=== PATIENT | male | born 1950 | race Caucasian/White ===

== ENCOUNTER 2024-01-17 20:09 | Emergency (ER) | payer MEDICARE, SELFPAY ==
[2024-01-17 20:11] VITALS: BP 161/101
[2024-01-17] MEDS: BENADRYL 50 MG IV (20:15)
[2024-01-17] MEDS: PEPCID 20 MG IV (20:20)
[2024-01-17] MEDS: ADRENALIN 0.3 MG IM (20:20)
[2024-01-17] MEDS: DECADRON 10 MG IV (20:20)
--- NOTE | 2024-01-17 20:27 | ED.GENMED ---
History of Present Illness
<Genaro Chamberlain, DO - Last Filed: 01/17/24 23:09>
General
Chief Complaint: Allergic Reaction
Source: patient and spouse
Exam Limitations: none
Time Seen by Provider: 01/17/24 20:14
Nursing documentation reviewed up to this point in time: agreed with
History of Present Illness
History of Present Illness:
73 yo male presents to the emergency department due to throat swelling and difficulty breathing. He had just eaten some Kh[place] food, but his leftovers that he had eaten the night before.
Past History
<Genaro Chamberlain, DO - Last Filed: 01/17/24 23:09>
Past History
ED Past Medical History: HTN, Hypercholesterolemia, NIDDM and Other (kidney stones)
ED Past Surgical History: None, Orthopedic and Urological
Social History
Tobacco: Former smoker
Personal:
Living: with family
Employment: Employed
Family History
Family History: CAD; Negative Early CAD
Review of Systems
<Genaro Chamberlain, DO - Last Filed: 01/17/24 23:09>
Review of Systems
Allergies reviewed?: Yes
All Other Systems: Not applicable
Constitutional: Reports no symptoms
EENT: Reports sore throat and mouth swelling
Respiratory: Reports trouble breathing
Phy Exam
<Genaro Chamberlain, DO - Last Filed: 01/17/24 23:09>
Physical Exam
Physical Exam:
Physical Exam
General: Mild respiratory distress
Neck: supple. no meningeal signs. normal posterior pharynx
Heart: s1/s2 regular rate and rhythm, no murmur. equal radial
pulses.
HEENT: Pupils equal round reactive to light, EOMI
Lungs: Mild respiratory distress. clear bilaterally
Abdomen: normal bowel sounds. not tender. no CVAT
Neuro: alert and oriented. no focal neurological deficits cranial nerves II through XII intact
Skin: no rash
Psychiatric: well kept. interactive and cooperative
Extremities: no edema. no calf tenderness. negative homans. good distal pulses
Course
<Genaro Chamberlain, DO - Last Filed: 01/17/24 23:09>
Orders/Labs/Results
Orders:
Orders
01/17/24 20:26
IV Insert/Care/Rem.- Treatment PRN
Dexamethasone Sod Phosphate [Decadron] 10 mg IV NOW STA
Diphenhydramine [Benadryl] 50 mg IV NOW STA
EPINEPHrine PF [Adrenalin] 0.3 mg IM NOW STA
Famotidine [Pepcid] 20 mg IV NOW STA
01/17/24 21:56
CT Neck With Iv Contrast Urgent
Comment:
Reason For Exam: throat swelling
01/17/24 21:57
IV Insert/Care/Rem.- Treatment PRN
01/17/24 22:46
Complete Blood Count/With Diff Urgent
Comprehensive Metabolic Panel Urgent
Abnormal Lab Results
01/17/24
22:46
WBC 13.9 H 10^3/uL
(4.8-10.8)
RBC 4.23 L 10^6/uL
(4.70-6.10)
MCV 95.3 H fL
(80.0-94.0)
MCH 33.1 H pg
(27.0-31.0)
MPV 10.7 H fL
(7.4-10.4)
Abs Immat Gran (auto) 0.1 H 10^3/uL
(0-0.05)
Absolute Neuts (auto) 12.6 H 10^3/uL
(1.4-6.5)
Absolute Lymphs (auto) 0.6 L 10^3/uL
(1.2-3.4)
Neutrophils % 90.7 H %
(42.2-75.2)
Lymphocytes % 4.4 L %
(20.5-51.1)
Glucose 215 H mg/dl
(70-99)
Total Protein 6.2 L g/dl
(6.3-8.2)
01/17/24 22:46
01/17/24 22:46
Vital Signs
Initial and Last Documented VS:
Initial Vital Signs
Temp Pulse Resp BP Pulse Ox
98.3 F 96 32 161/101 96
01/17/24 20:11 01/17/24 20:11 01/17/24 20:11 01/17/24 20:11 01/17/24 20:11
Last Documented Vital Signs
Temp Pulse Resp BP Pulse Ox
98.3 F 73 15 133/86 90
01/17/24 20:11 01/18/24 02:15 01/18/24 02:15 01/18/24 02:00 01/18/24 02:15
<Maria M Lara DO - Last Filed: 01/18/24 03:15>
Orders/Labs/Results
Orders:
Orders
01/17/24 20:26
IV Insert/Care/Rem.- Treatment PRN
Dexamethasone Sod Phosphate [Decadron] 10 mg IV NOW STA
Diphenhydramine [Benadryl] 50 mg IV NOW STA
EPINEPHrine PF [Adrenalin] 0.3 mg IM NOW STA
Famotidine [Pepcid] 20 mg IV NOW STA
01/17/24 21:56
CT Neck With Iv Contrast Urgent
Comment:
Reason For Exam: throat swelling
01/17/24 21:57
IV Insert/Care/Rem.- Treatment PRN
01/17/24 22:46
Complete Blood Count/With Diff Urgent
Comprehensive Metabolic Panel Urgent
Abnormal Lab Results
01/17/24
22:46
WBC 13.9 H 10^3/uL
(4.8-10.8)
RBC 4.23 L 10^6/uL
(4.70-6.10)
MCV 95.3 H fL
(80.0-94.0)
MCH 33.1 H pg
(27.0-31.0)
MPV 10.7 H fL
(7.4-10.4)
Abs Immat Gran (auto) 0.1 H 10^3/uL
(0-0.05)
Absolute Neuts (auto) 12.6 H 10^3/uL
(1.4-6.5)
Absolute Lymphs (auto) 0.6 L 10^3/uL
(1.2-3.4)
Neutrophils % 90.7 H %
(42.2-75.2)
Lymphocytes % 4.4 L %
(20.5-51.1)
Glucose 215 H mg/dl
(70-99)
Total Protein 6.2 L g/dl
(6.3-8.2)
01/17/24 22:46
01/17/24 22:46
Vital Signs
Initial and Last Documented VS:
Initial Vital Signs
Temp Pulse Resp BP Pulse Ox
98.3 F 96 32 161/101 96
01/17/24 20:11 01/17/24 20:11 01/17/24 20:11 01/17/24 20:11 01/17/24 20:11
Last Documented Vital Signs
Temp Pulse Resp BP Pulse Ox
98.3 F 73 15 133/86 90
01/17/24 20:11 01/18/24 02:15 01/18/24 02:15 01/18/24 02:00 01/18/24 02:15
<Genaro Chamberlain, DO - Last Filed: 01/17/24 23:09>
MDM/Problems Addressed
Differential Diagnosis Includes:
Epiglottitis, angioedema, anaphylaxis
MDM/Problems Addressed:
73-year-old male with difficulty breathing, throat swelling. Mild improvement after IV Decadron, Benadryl and epinephrine IM. Evaluate with CT scan due to persistent symptoms.
<Marai M Lraa, DO - Last Filed: 01/18/24 03:15>
*Radiology
Radiology exam reviewed: radiology read reviewed
*Pulse Oximetry
Patient hypoxic: no
*Critical Care Note
Total Time (30-74mins, 75-104mins- exclusive of procedures): Not Applicable
<Maria M Lara DO - Last Filed: 01/18/24 03:15>
Update Note
Update Note:
01/18/2024 00:[address] shows moderate edema of the uvula, oropharynx and hypopharynx consistent with angioedema. Airway is patent.
Patient reassessed, marked improvement in sense of throat swelling, speech is clear, no respiratory distress, no stridor.
Posterior pharynx with mild uvular edema.
Will continue to observe and if he continues to improve we will plan for discharge to home.
01/18/2024 0300 AM
Patient has had continued improvement, speech is clear, uvula near normal in size.
Will discharge to home with recommendations to initiate short course of daily antihistamine, will add a short course of prednisone.
Will discontinue enalapril and recommend he avoid all DENISSE inhibitors in the future.
Will increase amlodipine from 5 to 10 mg daily.
Patient has follow-up appointment with his PCP next week.
Return precautions discussed.
ED Attending Note
<Genaro Chamberlain DO - Last Filed: 01/17/24 23:09>
-
Portions of this chart may have been created with voice recognition software.� Occasional wrong word or��sound alike� substitutions may have occurred due to the inherent limitations of voice recognition software.
Discharge Plan
Departure
Patient Disposition: Home (Routine Discharge)
Date of Disposition: 01/18/24
Time of Disposition: 03:12
Patient with high blood pressure during this ER visit?: No
Condition: Good
Discharge Problem:
acute angioedema, DENISSE inhibitor-aggravated angioedema
Instructions: Angioedema caused by DENISSE inhibitor medicines
Prescriptions:
New
prednisone 20 mg tablet
40 mg PO DAILY Qty: 10 0RF
No Action
enalapril maleate 20 MG tablet
20 mg PO BID
aspirin [Cristofer Low Dose Aspirin] 81 MG tablet,delayed release (DR/EC)
81 mg PO Daily
metformin 500 mg Tablet
500 mg PO BID
metoprolol succinate 25 mg Tablet Extended Release 24 Hr
25 mg PO DAILY
iykoaojhxtla-rhxiaibl-zhjkdn Tablet
1 tab PO DAILY
rosuvastatin 20 mg Tablet
20 mg PO DAILY
cholecalciferol (vitamin D3) [Vitamin D3] 50 mcg (2,000 unit) Capsule
50 mcg PO DAILY
Trulicity 0.75 mg/0.5 mL Pen Injector
0.75 mg SC QWEEK
amlodipine 5 mg tablet
5 mg PO DAILY Qty: 90 3RF
Referrals:
Gaurav Oscar MD [Family Provider] - Keep scheduled appt
Activity Restrictions/Additional Instructions:
Discontinue enalapril and going forward you should avoid all DENISSE inhibitor blood pressure medications.
Double up your amlodipine from 5 mg to 10 mg nightly.
Follow-up with Dr. Oscar next week for recheck as already scheduled.
Interventions
Interventions:
*General Assessment Last Done: 01/17/24 20:12
*Neglect/Abuse Screening Last Done: 01/17/24 20:50
ED- Fall Risk Assessment Last Done: 01/17/24 20:50
*ED COVID-19 Vaccine History Last Done: 01/17/24 20:50
ED- Cardiac Assessment Last Done: 01/17/24 20:50
ED- Pulmonary Assessment Last Done: 01/17/24 20:50
ED-Skin Assessment Last Done: 01/17/24 20:50
Discharge Date and Time
Print Language: SERBIAN
--- NOTE | 2024-01-17 20:27 | EDRN ---
Upon arrival to room 41, NARDA Mendoza placed 18 G LAC. Pt on . Dr Chamberlain to bedside. This RN amdministered 0.3 mg epi IM, 10 mg decadron IV, and 50 mg benadryl IV STAT and not scanned.
[2024-01-17 20:37] VITALS: BP 116/74
[2024-01-17 20:50] VITALS: BMI 33.7
[2024-01-17 21:00] VITALS: BP 106/92
[2024-01-17 22:44] VITALS: BP 135/79
[2024-01-17 22:59] LABS: % Basophils 0.2 % (0-2); % Eosinophils 0.5 % (0-6); % Immature Granulocytes 0.4 % (0-0.5); % Lymphocytes 4.4 % (20.5-51.1); % Monocytes 3.8 % (1.7-9.3); % Neutrophils 90.7 % (42.2-75.2); Absolute Eosinophils 0.1 10^3/uL (0-0.7); Absolute Immature Granulocytes 0.1 10^3/uL (0-0.05); Absolute Lymphocytes 0.6 10^3/uL (1.2-3.4); Absolute Monocytes 0.5 10^3/uL (0.1-0.6); Absolute Neutrophils 12.6 10^3/uL (1.4-6.5); Hematocrit 40.3 % (39.0-52.0); Mean Corp Hgb Conc. 34.7 g/dL (33.0-37.0); Mean Corpuscular Hgb 33.1 pg (27.0-31.0); Mean Corpuscular Volume 95.3 fL (80.0-94.0); Mean Platelet Volume 10.7 fL (7.4-10.4); Nucleated Red Blood Cells % 0 % (-); Platelet Count 159 10^3/uL (130-400); Red Blood Cell Count 4.23 10^6/uL (4.70-6.10); Red Cell Dist. Width 12.6 % (11.5-14.5); White Blood Cell Count 13.9 10^3/uL (4.8-10.8)
[2024-01-17 23:00] VITALS: BP 126/82
[2024-01-17 23:30] LABS: ALT (SGPT) 20 U/L (0-50); AST (SGOT) 26 U/L (17-59); Albumin 3.9 g/dl (3.5-5.0); Alkaline Phosphatase 71 U/L (38-126); Blood Urea Nitrogen 16 mg/dl (9-20); Calcium 8.7 mg/dl (8.4-10.2); Carbon Dioxide 23 mmol/L (22-30); Chloride 105 mmol/L (98-107); Estimated Creatinine Clearance 88 ml/min; Glucose 215 mg/dl (70-99); Potassium 4.6 mmol/L (3.5-5.1); Sodium 142 mmol/L (135-145); Total Bilirubin 0.6 mg/dl (0.2-1.3); Total Protein 6.2 g/dl (6.3-8.2); eGFR > 60.00
[2024-01-18 00:41] VITALS: BP 133/87
[2024-01-18 01:00] VITALS: BP 124/77
[2024-01-18 02:00] VITALS: BP 133/86
[2024-01-18 03:00] VITALS: BP 133/84
== END 2024-01-18 03:15 | disposition home or self-care (01) ==
LOC: EMR 20:09
PROVIDERS: Emergency Medicine; EMERGENCY PHYSICIAN Emergency Medicine; FAMILY PHYSICIAN Family Medicine
DX: T78.3XXA Angioneurotic edema, initial encounter (principal); R06.00 Dyspnea, unspecified; R22.0 Localized swelling, mass and lump, head; J02.9 Acute pharyngitis, unspecified; I10 Essential (primary) hypertension; E11.9 Type 2 diabetes mellitus without complications; Z87.442 Personal history of urinary calculi; Z87.891 Personal history of nicotine dependence; Z79.84 Long term (current) use of oral hypoglycemic drugs
CPT/HCPCS: 99284; 96374; 96375 ×2; 96372; 70491; 80053; 85025; Q9967

== ENCOUNTER → 2024-05-20 06:33 | Outpatient (REF) | payer MEDICARE, SELFPAY | LOC: MRI 06:33 | PROVIDERS: ATTENDING PHYSICIAN Physician Assistant; FAMILY PHYSICIAN Family Medicine | DX: M54.16 Radiculopathy, lumbar region (principal) | CPT/HCPCS: 72148 ==

== ENCOUNTER → 2024-08-07 15:24 | Outpatient (REF) | payer MEDICARE, SELFPAY | LOC: DHSLP 15:24 | PROVIDERS: ATTENDING PHYSICIAN Nuclear Medicine Nuclear Cardiology; FAMILY PHYSICIAN Family Medicine | DX: G47.33 Obstructive sleep apnea (adult) (pediatric) (principal); R40.0 Somnolence; E66.9 Obesity, unspecified; Z68.29 Body mass index [BMI] 29.0-29.9, adult | CPT/HCPCS: 95800 ==

== ENCOUNTER → 2024-09-03 08:52 | Outpatient (REF) | payer MEDICARE, SELFPAY | LOC: RCS 08:52 | PROVIDERS: ATTENDING PHYSICIAN Nuclear Medicine Nuclear Cardiology; FAMILY PHYSICIAN Family Medicine | DX: I10 Essential (primary) hypertension (principal); I49.3 Ventricular premature depolarization; R93.1 Abnormal findings on diagnostic imaging of heart and coronary circulation; E11.65 Type 2 diabetes mellitus with hyperglycemia; R06.09 Other forms of dyspnea | CPT/HCPCS: 93306 ==